=== PATIENT | female | born 1960 | race Caucasian/White ===

== ENCOUNTER 2018-08-05 18:25 | Inpatient (IN) | payer MEDICARE ==
[~2018-08-05] VITALS: Ht 157.5 cm; Wt 53.0 kg
[~2018-08-05 18:25] MED LIST: ACETAMINOPHEN325 M1 PO; ALDACTAZIDE 251 EAC1 PO; BLOOD PRESSURE PILL; COREG PO; FOLIC ACID1 MG PO; MAGOX 400400 MG PO; MULTIPLE VITAM1 EAC3 PO; NOHOMEMEDICATIONS; POTASSIUM20 PO; PROTONIX40 M2 PO; THERA-M CAPLET1 EAC1 PO; VITAMIN B-1100 M1 PO; [UNRECOGNIZED DRUG - CODE] PO
[2018-08-05 18:28] VITALS: BP 149/95
[2018-08-05] MEDS ORDERED: LISINOPRIL10 MG PO (18:32)
[2018-08-05] MEDS ORDERED: ALEVE220 MG PO (18:32)
--- NOTE | 2018-08-05 18:50 | NUR ---
PT BACK FROM RADIOLOGY VIA STRETCHER BY DENTAL LABORATORY TECHNICIAN APPRENTICE
--- NOTE | 2018-08-05 18:50 | NUR ---
REPORT GIVEN TO ALEJANDRO WAN WHO IS TO ASSUME PT CARE AT THIS TIME.
[2018-08-05 20:23] LABS: ABSOLUTE BASOPHILS 0.1 thou/uL (0.0-0.2); ABSOLUTE EOSINOPHILS 0.1 thou/uL (0.0-0.7); ABSOLUTE LYMPHOCYTES 1.2 thou/uL (0.8-5.3); ABSOLUTE MONOCYTES 0.6 thou/uL (0.0-1.2); ABSOLUTE NEUTROPHILS 10.1 thou/uL (1.6-8.1); BASOPHILS 0.7 %; EOSINOPHILS 0.5 %; HEMATOCRIT 36.8 % (37.0-47.0); HEMOGLOBIN 12.6 gm/dL (12.0-15.0); LYMPHOCYTES 10.1 %; MCH 31.7 pg (26.0-34.0); MCHC 34.2 g/dL (28.0-37.0); MCV 92.4 fL (80.0-100.0); MONOCYTES 4.9 %; MPV 7.3 fl. (7.2-11.1); NUCLEATED RBCS 0 /100WBC; PLATELET COUNT* 368 thou/uL (150-400); POLYS 83.8 %; RBC 3.98 mil/uL (4.20-5.00)
[2018-08-05 20:39] LABS: CALCIUM 9.6 mg/dL (8.5-10.1); CREATININE 0.8 mg/dL (0.6-1.3); POTASSIUM 3.8 mmol/L (3.5-5.1)
[2018-08-05 20:49] LABS: ALBUMIN 3.7 g/dL (3.4-5.0); TOTAL BILIRUBIN 0.2 mg/dL (<0.1-1.0); TOTAL PROTEIN 7.1 g/dL (6.4-8.2)
[2018-08-05 23:54] VITALS: BP 146/75
[2018-08-06] VITALS (7 sets, daily range): BP systolic 112–173; BP diastolic 72–94
--- NOTE | 2018-08-06 | NUR ---
PT ADMITTED A TELEMETRY PT. PT NOTED TOHAVE VOIDED IN BED. PT CLEANED AND MOVED TO HOSPITAL BED FOR COMFORT. RIGHT KNEE IMMOBLIZER INTACT. IV D5NS INFUSING VIA PUMP ORDERED AT 100CC/HR. Q 1 HR CIWAS STARTED ORDERED. PT OREINTED TO BED CONTROLS AND NURS ECALL SYSTEM. MONITOR APPLIED WITH ALARMS SET. WILL CONTINUE TO MONITOR
--- NOTE | 2018-08-06 06:02 | NUR ---
PT HAS RESTED QUIELTY THIS SHIFT. MONITORS INTACT WITH ALARMS SET. RIGHT KNEE IMMOBILIZER INTACT. CIWA HAS BEEN 0-2 THIS SHIFT. NO ACUTE DISTRESS NOTED. WILL CONTINUE TO MONITOR. NO ACUTE CHANGES DURING SHIFT
--- NOTE | 2018-08-06 07:02 | NUR ---
THIS NURSE RECEIVED REPORT FROM ALEJANDRO WAN. THIS NURSE TO ASSUME PT CARE AT THIS TIME.
--- NOTE | 2018-08-06 08:00 | NUR ---
ER ADMIT TO 2W ROOM 209. ASSESSMENT COMPLETE, DEFER TO COMPUTER CHARTING. PERFORMING ARTIST PLACED TRACKING SR. ALERT ORIENTED, CIWA SCORE 2. LEFT KNEE IMMOBILIZER IN PALCED TO RIGHT KNEE/LEG, REPORTING HAVING PAIN - WILL GIVE REPEAT PAIN MEDIATION TO ASSIST WITH PAIN CONTROL. DAUGHTERS AT BEDSIDE. BED ALARM ON FOR SAFETY. ORIENTED TO ROOM/CALL LIGHT AND PLAN OF CARE, VERBALIZED UNDERSTANDING. INCONTINENT OF LARGE AMT URINE, PAIN WHEN TURNING - EXTERNAL URINARY CATH PLACED. HOB ELEVATED, CALL LIGHT WITHIN REACH. DAUGHTERS AT BEDSIDE. WILL CONTINUE WITH PLAN OF CARE.
[2018-08-06] MEDS ORDERED: COZAAR 25 MG TA25 M2 PO (08:36)
[2018-08-06 09:20] LABS: CALCIUM 9.2 mg/dL (8.5-10.1); CREATININE 0.7 mg/dL (0.6-1.3); POTASSIUM 3.9 mmol/L (3.5-5.1)
[2018-08-06 09:36] LABS: CALCIUM 9.1 mg/dL (8.5-10.1); PHOSPHORUS* 4.3 mg/dL (2.5-4.9)
[2018-08-06 12:04] LABS: INR 0.9; PROTIME 9.6 Seconds (9.20-11.50)
--- NOTE | 2018-08-06 13:27 | NUR ---
INITIAL ASSESSMENT: Pt evaluated for d/c planning needs. Reviewed chart and spoke with nurse, pt and pt's 3 daughters. Pt lives alone in [facility] and history of alcohol abuse. Dtrs are concerned about pt's home situation. Pt's mother is her payee for her Social Security check and manages all of pt's finances. Pt's daughters are concerned about pt's ability to care for herself at home. Pt's daughters state that pt has urinated on herself and in her bed recently, and has not changed clothes or sheets. She also does not bathe according to dtrs. Pt continues to abuse alcohol and daughters want pt to go to SNF on d/c from hospital and then transition to assisted living or prison care. Pt was hospitalized at [facility] in January 2013 and went to [facility]. 2 daughters live in [place] and 1 daughter lives in [place]. Pt would prefer going to [facility] for SNF on d/c from hospital. Referral sent to [facility] and [facility] as second choice. When pt was at [facility], the manager social media there assisted with Medicaid application. Encouraged daughters to make Medicaid application again to assist with payment for co-pays at [facility]. Daughters are hopeful that pt will agree to going to assisted living after d/c from SNF. If pt does return home after [facility], she would benefit from home health. Dtrs are in agreement with plans. Talked about Medicaid homemaker services for pt. Will remain available to assist as needed.
--- NOTE | 2018-08-06 13:33 | NUR ---
SPOKE WITH CUAUHTEMOC WITH THE LOW EMISSION AUTOMOBILE DESIGNER FOR THE BRACE THAT NEEDS TO BE ORDERED FOR THIS PATIENT. SHE IS AWARE THAT WE NEED A HINGED BRACE FOR THIS PATIENT AND DR PIZARRO AND DR PANTOJA HAVE BEEN CALLED TO FOLLOW UP ON THE PARAMETERS WANTED FOR THIS DEVICE. CUAUHTEMOC STATED SHE WOULD BRING THE DEVICE TODAY.
--- NOTE | 2018-08-06 17:24 | NUR ---
CLAIM PROFESSIONAL TRACKING WITH NO CHANGE IN RHYTHM. CIWA SCORE 0, PATIENT DROWSY HAVING DIFFICULTY STAYING AWAKE - HELD SCHEULED ATIVAN AT THIS TIME. TOLERATING DIET. KNEE BRACED DELIVERED EARLIER BY EVAPORATOR REPAIRER AND IN PLACE TO RIGHT KNEE/LEG. NO COMPLAINTS OF PAIN TO NURSING AT THIS TIME, STATES ONLY HAVING DISCOMFORT WHEN MOVING. CALL LIGHT WTIHIN REACH. WILL CONTINUE WITH PLAN OF CARE.
[2018-08-07 00:01] VITALS: BP 144/73
[2018-08-07 04:00] VITALS: BP 138/77
[2018-08-07 04:54] LABS: HEMATOCRIT 33.5 % (37.0-47.0); HEMOGLOBIN 11.4 gm/dL (12.0-15.0); MCV 94.1 fL (80.0-100.0); MPV 7.7 fl. (7.2-11.1); RBC 3.56 mil/uL (4.20-5.00); RDW-CV 13.7 % (10.5-14.5); WBC 5.2 thou/uL (4.0-11.0)
[2018-08-07 05:12] LABS: ALBUMIN 3.1 g/dL (3.4-5.0); CALCIUM 8.7 mg/dL (8.5-10.1); CREATININE 0.6 mg/dL (0.6-1.3); POTASSIUM 3.8 mmol/L (3.5-5.1); TOTAL BILIRUBIN 0.3 mg/dL (<0.1-1.0)
[2018-08-07 07:45] VITALS: BP 164/69
--- NOTE | 2018-08-07 07:56 | NUR ---
ASSUMED PT CARE 193. ASSESSMENT COMPLETED CHARTED. ABLE TO MAKE NEEDS KNOWN. PURE WICK IN PLACE, NO C/O PAIN OR DISCOMFORT AT THIS TIME BUT HAS SOME SORENESS AT TIMES MOVING RIGHT LEG. BRACE IN PLACE. VSS. [id number] STARTED. WILL CONTINUE TO MONITOR.
[2018-08-07 12:31] VITALS: BP 162/85
[2018-08-07 15:38] VITALS: BP 139/74
--- NOTE | 2018-08-07 16:31 | NUR ---
ASSUMED CARE OF PATIENT AT 0730. ALERT AND ORIENTED X 4. VITAL SIGNS STABLE ON ROOM AIR. SINUS TACH ON MONITOR. AFEBRILE. PERRLA. IV PATENT AND SALINE LOCKED. PURE WICK FEMALE EXTERNAL CATHETER CHANGED THIS SHIFT AND IS IN PLACE AND DRAINING. PAIN BEING MANAGED WITH IV MEDICATION. DENIES NAUSEA AT THIS TIME. 3D HINGE BRACE IN PLACE TO RIGHT LEG. BED LOCKED AND IN LOWEST POSITION. FALL PRECAUTIONS IN PLACE AND BED ALARM ON. HOURLY ROUNDS MAINTAINED THROUGHOUT THE SHIFT. CALL LIGHT WITHIN REACH. NURSING WILL CONTINUE TO MONITOR.
[2018-08-07 20:00] VITALS: BP 138/63
[2018-08-08] VITALS: BP 130/63
[2018-08-08 04:00] VITALS: BP 155/83
[2018-08-08 05:05] LABS: HEMATOCRIT 33.3 % (37.0-47.0); HEMOGLOBIN 11.5 gm/dL (12.0-15.0); MCH 31.9 pg (26.0-34.0); MCHC 34.5 g/dL (28.0-37.0); MCV 92.6 fL (80.0-100.0); MPV 7.8 fl. (7.2-11.1); RBC 3.6 mil/uL (4.20-5.00); RDW-CV 13.3 % (10.5-14.5)
[2018-08-08 05:23] LABS: CALCIUM 8.9 mg/dL (8.5-10.1); CREATININE 0.6 mg/dL (0.6-1.3); MAGNESIUM 1.9 mg/dL (1.8-2.4); PHOSPHORUS* 3.7 mg/dL (2.5-4.9); POTASSIUM 3.8 mmol/L (3.5-5.1)
--- NOTE | 2018-08-08 05:55 | NUR ---
ASSUMED PT CARE AT 1930. ASSESSMENT COMPLETED CHARTED. NIGHT WENT ON, PT STARTED TO GO INTO WITHDRAW WITH CIWA OF 8-12 REGARDING ANXIETY, AGITATION, DISORIENTATION, AND HEADACHE. GAVE PRN ATIVAN PER PROTOCOL AND SCHEDULED. PT GETTING AGITATED THAT SHE CANT FALL ASLEEP YET, NO C/O PAIN OR DISCOMFORT AND THINKING SHE CAN FULLY WALK ON HER RIGHT LEG THAT SHE BROKE A COUPLE BONES ON. THINKING SHE IS AT HER HOUSE IN THE BASEMENT, ASKING TO BE MOVED TO ROOM, AND THEN WANTING TO SMOKE WHICH SHE PULLED OUT HER CIGARRETES FROM HER PURSE AND WAS GETTING READY TO SMOKE. THOSE ARE NOW WITH SECURITY. WILL CONTINUE TO MONITOR.
--- NOTE | 2018-08-08 07:20 | NUR ---
CHANGE OF SHIFT, BEDSIDE REPORT GIVEN PATIENT SEEN AT BEDSIDE, IN BED RESTING ASSUMED PATIENT CARE
[2018-08-08 08:00] VITALS: BP 172/95
--- NOTE | 2018-08-08 10:03 | NUR ---
LEATHER WORKER SPOKE TO LAKESHA WITH [facility] TO F/U ON A REFERRAL FAXED OVER THE WEEKEND. LAKESHA CONFIRMS THAT THE REFERRAL HAD BEEN RECIEVED, BUT NEEDED ADDITIONAL INFO (PT/OT NOTES, VITALS, AND PROGRESS NOTES). LAKESHA INFORMS THAT ADMISSIONS WILL REVIEW THE REFERRAL AND RETURN CALL. CM WILL REMAIN AVIALABLE TO ASSIST AND FOLLOW NEEDED.
[2018-08-08 11:28] VITALS: BP 159/92
[2018-08-08 11:38] LABS: AMP/METHAMP Negative (Negative); BARBITURATES Negative (Negative); BENZODIAZEPINES Negative (Negative); COCAINE Negative (Negative); METHADONE Negative (Negative); OPIATES Negative (Negative); PCP Negative (Negative); THC Negative (Negative); URINE BILIRUBIN NEGATIVE (Negative); URINE BLOOD NEGATIVE (Negative); URINE CLARITY CLEAR; URINE COLOR YELLOW; URINE GLUCOSE-RANDOM NEGATIVE (Negative); URINE KETONES NEGATIVE (Negative); URINE LEUKOCYTES NEGATIVE (Negative); URINE NITRITE NEGATIVE (Negative); URINE PROTEIN NEGATIVE (Negative); URINE UROBILINOGEN 0.2 E.U./dl (0.2-1.0)
--- NOTE | 2018-08-08 15:13 | NUR ---
PT. NOT SEEN DUE TO OT SCHEDULE CONFLICT.
[2018-08-08 15:33] VITALS: BP 146/72
[2018-08-08 21:00] VITALS: BP 108/65
[2018-08-09] VITALS: BP 120/73
[2018-08-09 04:00] VITALS: BP 109/63
[2018-08-09 05:09] LABS: HEMATOCRIT 35.3 % (37.0-47.0); MCH 31.7 pg (26.0-34.0); MCHC 33.9 g/dL (28.0-37.0); MCV 93.6 fL (80.0-100.0); MPV 7.5 fl. (7.2-11.1); RBC 3.77 mil/uL (4.20-5.00); RDW-CV 13.4 % (10.5-14.5); WBC 4.8 thou/uL (4.0-11.0)
[2018-08-09 06:23] LABS: ALBUMIN 3.2 g/dL (3.4-5.0); CALCIUM 9.2 mg/dL (8.5-10.1); CREATININE 0.7 mg/dL (0.6-1.3); MAGNESIUM 2.1 mg/dL (1.8-2.4); PHOSPHORUS* 4.8 mg/dL (2.5-4.9); TOTAL BILIRUBIN 0.3 mg/dL (<0.1-1.0); TOTAL PROTEIN 6.5 g/dL (6.4-8.2)
[2018-08-09 08:00] VITALS: BP 116/71
--- NOTE | 2018-08-09 08:00 | NUR ---
ASSUMED PT CARE AT 0700, A&O X2, VSS, SHUTTLE FIXER TRACING SINUS RHYTHM, RA. TOE TOUCH WEIGHT BEARING D/T RIGHT TIBIAL FX, BRACE IN PLACE, SITTER AT BEDSIDE, PT IS CALM AND COOPERATIVE AT THIS TIME. WILL CONT POC.
--- NOTE | 2018-08-09 08:07 | NUR ---
PATIENT HAS SLEPT MOST OF THE NIGHT. VSS ON RA. NO C/O PAIN. MEDICATIONS GIVEN ORDERED. PATIENT HAS BEEN A LITTLE IMPULSIVE AND CONFUSED AT TIMES, BUT ANSWERS APPROPRIATELY MOST OF THE TIME. SITTER AT BEDSIDE. PATIENT HAS NOT BEEN UP DURING THE SHIFT. BRACE TO RIGHT LEG IS IN PLACE. IV IN RIGHT FOREARM-SL. WILL CONTINUE WITH PLAN OF CARE AND NURSING TO MONITOR.
[2018-08-09 11:40] VITALS: BP 101/59
[2018-08-09 16:00] VITALS: BP 105/58
--- NOTE | 2018-08-09 16:21 | NUR ---
TUBE BENDER INFORMED BY DR PIZARRO THAT THE PATIENT 'MAY NOT REGAIN FULL COGNATIVE FUNCTION, AND WILL NEED MEMORY CARE AT D/C'. D/C LIP CUTTER ATTEMPTED TO CONTACT THE PATIENT'S DTR TO DISCUSS THIS FURTHER, AND LEFT A MESSAGE TO RETURN CALL TO CM. D/C LIP CUTTER ALSO ATTEMPTED TO CONTACT LAKESHA WITH ADMISSIONS AT [facility] TO INFORM THAT THE PATIENT MAY NEED A MEMORY CAR BED A D/C, AN D LEFT A MESSAGE TO RETURN CALL. ALY WITH [facility] HERE TO SEE THE PATIENT AND ASSIST WITH MEDICAID NIRMAL. CM WILL REMAIN AVAILABLE TO ASSIST AND FOLLOW NEEDED.
--- NOTE | 2018-08-09 18:39 | NUR ---
PT CONT TO HAVE CONFUSION, A&O X2-3, CONT ON BEDREST FOR RIGHT TIBIAL FX, BRACE IN PLACE. PT HAS BEEN CALM AND COOPERATIVE, SITTER REMAINS AT BEDSIDE. VSS, ASSEMBLER METAL BUILDING TRACING SINUS RHYTHM, HOURLY ROUNDING COMPLETED.
[2018-08-09 20:00] VITALS: BP 111/78
[2018-08-10] VITALS: BP 132/77
[2018-08-10 04:00] VITALS: BP 104/71
--- NOTE | 2018-08-10 05:15 | NUR ---
ASSUMED CARE OF PT AFTER REPORT AT 1930. PT A&OX4. FORGETFUL. CONFUSED AT TIMES. EASILY REDIRECTED. VSS. PHSYICAL ASSESSMENT COMPLETED AND CHARTED. PT ON RA. PT TRACING SR/ST ON TELE. PT COMPLAINED OF KNEE PAIN- PAIN MEDS GIVEN PER MAR. PT RESTED WELL ON BED. PT IS CALM & NOT IMPULSIVE- AUTOMATIC LOG CUT OFF SAWYER PULLED OUT AT 4AM. CALL LIGHT WITHIN REACH.
[2018-08-10 05:40] LABS: HEMATOCRIT 33.1 % (37.0-47.0); HEMOGLOBIN 11.4 gm/dL (12.0-15.0); MCHC 34.3 g/dL (28.0-37.0); MCV 93.4 fL (80.0-100.0); MPV 7.7 fl. (7.2-11.1); RBC 3.54 mil/uL (4.20-5.00); RDW-CV 13.8 % (10.5-14.5); WBC 5.4 thou/uL (4.0-11.0)
[2018-08-10 05:58] LABS: CALCIUM 8.8 mg/dL (8.5-10.1); CREATININE 0.8 mg/dL (0.6-1.3); MAGNESIUM 2.1 mg/dL (1.8-2.4); POTASSIUM 4.2 mmol/L (3.5-5.1); TOTAL BILIRUBIN 0.3 mg/dL (<0.1-1.0); TOTAL PROTEIN 6.2 g/dL (6.4-8.2)
[2018-08-10 08:00] VITALS: BP 128/56
--- NOTE | 2018-08-10 08:00 | NUR ---
ASSUME PT CARE AT 0700, PT LYING IN BED, CALL LIGHT IN REACH, FALL PRECAUTIONS IN PLACE. A&O X4 WITH SOME FORGETFULNESS, CALM AND COOPERATIVE. NO C/O PAIN AT THIS TIME, LEG BRACE IN PLACE. VSS, RA, FLIGHT TEST MECHANIC TRACING SINUS RHYTHM. SENIOR ENVIRONMENTAL SCIENTIST TO FIND PLACEMENT FOR PT D/T LIVING AT HOME ALONE, WILL CONT POC.
[2018-08-10 11:48] VITALS: BP 121/75
--- NOTE | 2018-08-10 11:48 | NUR ---
MICHAEL spoke with Pt's dtr, Luz, discussed need for memory care at [place], dtr in agreement. Per dtr, preference would be for Pt to go to [facility], most of Pt's family live there, second choice is [facility]. MICHAEL [place] [facility] their [place] unit, faxed referral. Plan skilled then transition to LTC.
[2018-08-10 16:12] VITALS: BP 127/79
--- NOTE | 2018-08-10 16:47 | NUR ---
PT UP WITH PT/OT THIS SHIFT, PT TO CONT USING BED ART SHE IS UNABLE TO UNDERSTAND CONCEPT OF TOE TOUCH WEIGHT BEARING AND UNABLE TO UNDERSTAND HOW TO USE WALKER. PT/OT TO CONTINUE WORKING WITH PT. PT TO DISCHARGE TO [facility] TOMORROW, PT HAS BEEN ACCEPTED BY FACILITY, PT AND FAMILY AWARE AND ON BOARD. A&O X4 WITH SOME CONFUSION AT TIMES, VSS, RA, HOURLY ROUNDING COMPLETED.
[2018-08-10 20:00] VITALS: BP 151/78
[2018-08-11 00:04] VITALS: BP 171/100
[2018-08-11 03:53] LABS: HEMATOCRIT 32.8 % (37.0-47.0); HEMOGLOBIN 11.4 gm/dL (12.0-15.0); MCH 32.3 pg (26.0-34.0); MCHC 34.8 g/dL (28.0-37.0); MCV 92.8 fL (80.0-100.0); RBC 3.53 mil/uL (4.20-5.00); RDW-CV 13.4 % (10.5-14.5); WBC 5.9 thou/uL (4.0-11.0)
[2018-08-11 04:00] VITALS: BP 145/86
[2018-08-11 04:20] LABS: ALBUMIN 3.2 g/dL (3.4-5.0); CALCIUM 9.2 mg/dL (8.5-10.1); CREATININE 0.6 mg/dL (0.6-1.3); POTASSIUM 4.3 mmol/L (3.5-5.1)
--- NOTE | 2018-08-11 04:35 | NUR ---
ASSUMED CARE OF PT AFTER REPORT AT 1930. PT A&OX4. FORGETFUL & CONFUSED AT TIMES. VSS. PHYSICAL ASSESSMENT COMPLETED AND CHARTED. PT ON RA. PT TRACING SR ON TELE. PT COMPLAINED OF RIGHT KNEE PAIN- PAIN MEDS GIVEN PER MAR. PT RESTED WELL ON BED. HOURLY ROUNDING OBSERVED. CALL LIGHT WITHIN REACH.
[2018-08-11 07:10] VITALS: BP 170/95
--- NOTE | 2018-08-11 08:00 | NUR ---
INITAL ASSESSMENT COMPLETED CHARTED. VSS. PT IS ALERT & OTIRENTED. TRACING SR ON MONITOR. PT C/O ACHING IN BILATERAL KNEES. HOURLY ROUNDING AND FALL PRECAUTIONS IN PLACE FOR PT SAFETY/ CLWR/
[2018-08-11] MEDS ORDERED: POTASSIUM20 PO (10:58)
[2018-08-11] MEDS ORDERED: MAGOX 400400 MG PO (10:59)
[2018-08-11] MEDS ORDERED: ATIVAN1 MG PO (11:02)
[2018-08-11] MEDS ORDERED: ENOXAPARIN40 MG/0.1 SUBQ (11:03)
[2018-08-11] MEDS ORDERED: MELATONIN5 M1 PO (11:04)
[2018-08-11] MEDS ORDERED: MILK OF MA400 MG/5 M PO (11:06)
[2018-08-11] MEDS ORDERED: ALUMINUM H600 MG/5 M PO (11:10)
[2018-08-11] MEDS ORDERED: PEPCID20 MG PO (11:12)
[2018-08-11] MEDS ORDERED: PHENERGAN12.5 M2 PO (11:13)
[2018-08-11] MEDS ORDERED: ALEVE220 MG PO (11:16)
[2018-08-11] MEDS ORDERED: TYLENOL325 MG RECTAL (11:16)
[2018-08-11] MEDS ORDERED: AMBIEN 5 MG TABL5 M1 PO (11:20)
[2018-08-11] MEDS ORDERED: DULCOLAX5 MG PO (11:22)
[2018-08-11] MEDS ORDERED: COZAAR 25 MG TA25 MG PO (11:24)
[2018-08-11] MEDS ORDERED: BENADRYL25 MG PO (11:25)
[2018-08-11] MEDS ORDERED: NORCO 5-325 TA1 EACH PO (11:27)
[2018-08-11 11:28] VITALS: BP 170/95
[2018-08-11 12:01] VITALS: BP 118/76
[2018-08-11] MEDS ORDERED: NICOTINE TRANSD21 M1 TRANSDERM (12:24)
--- NOTE | 2018-08-11 13:53 | NUR ---
LAND SURVEYING PARTY CHIEF INFORMED THAT THE PATIENT IS READY TO D/C TODAY TO [facility]. D/C INTEGRATED CAMPAIGN MANAGER CALLED AND LEFT A MESSAGE FOR [facility] WITH ADMISSIONS TO INFORM OF THE PATIENT'S D/C, AND FAXED THE PATIENT'S D/C ORDERS. D/C INTEGRATED CAMPAIGN MANAGER CALLED PATIENT'S DTR TO INFORM OF THE PATIENT'S D/C AND TIME OF TRANSPORT. PATIENT'S DTR IN AGREEMENT. D/C INTEGRATED CAMPAIGN MANAGER ARRANGED TRANSPORT WITH [facility] FOR 1430. D/C INTEGRATED CAMPAIGN MANAGER INFORMED THE RN IN-CHARGE OF THE PATIENT OF THE PATIENT'S TIME OF TRANSPORT AND WHERE TO CALL REPORT. RN IN AGREEMENT. CM WILL REMAIN AVIALABEL TO ASSIST AND FOLLOW NEEDED. [facility] [phone]
== END 2018-08-11 14:45 | DRG 543 ==
LOC: M.ERS 18:25 → M.TBA-ER 21:12 → M.2W 21:12
PROVIDERS: Internal Medicine; Nurse Practitioner Family; ADMIT Internal Medicine
DX: M80.061A Age-related osteoporosis with current pathological fracture, right lower leg, initial encounter for fracture (principal); E44.1 Mild protein-calorie malnutrition; J43.9 Emphysema, unspecified; I10 Essential (primary) hypertension; F17.210 Nicotine dependence, cigarettes, uncomplicated; F10.20 Alcohol dependence, uncomplicated; F04 Amnestic disorder due to known physiological condition; M85.861 Other specified disorders of bone density and structure, right lower leg; Z68.21 Body mass index [BMI] 21.0-21.9, adult; Z90.710 Acquired absence of both cervix and uterus; Z98.42 Cataract extraction status, left eye; Z98.41 Cataract extraction status, right eye; Z88.1 Allergy status to other antibiotic agents; Z88.8 Allergy status to other drugs, medicaments and biological substances; W01.0XXA Fall on same level from slipping, tripping and stumbling without subsequent striking against object, initial encounter; Y93.89 Activity, other specified; Y92.89 Other specified places as the place of occurrence of the external cause; Y99.8 Other external cause status

== ENCOUNTER 2020-05-31 23:20 | Inpatient (IN) | payer MEDICARE, MEDICAID ==
[~2020-05-31] VITALS: Ht 157.5 cm; Wt 61.6 kg
[~2020-05-31 23:20] MED LIST changes: +ALEVE220 MG PO; +ALUMINUM H600 MG/5 M PO; +AMBIEN 5 MG TABL5 M1 PO; +ATIVAN0.5 M1 PO; +BENADRYL25 MG PO; +COZAAR 25 MG TA25 M2 PO; +COZAAR 25 MG TA25 MG PO; +DULCOLAX5 MG PO; +ENOXAPARIN40 MG/0.1 SUBQ; +LISINOPRIL10 MG PO; +MELATONIN5 M1 PO; +MILK OF MA400 MG/5 M PO; +NICOTINE TRANSD21 M1 TRANSDERM; +NORCO 5-325 TA1 EACH PO; +PEPCID20 MG PO; +PHENERGAN12.5 M2 PO; +TYLENOL325 MG PO
[2020-06-01] MEDS ORDERED: LORATIDINE 10 M10 M1 PO (00:03)
[2020-06-01] MEDS ORDERED: NYSTATIN1 EA10 (00:04)
[2020-06-01] MEDS ORDERED: NYSTATIN15 G3 TOP (00:06)
[2020-06-01] MEDS ORDERED: REQUIP 0.25 M0.25 MG PO (00:07)
[2020-06-01] MEDS ORDERED: REQUIP 1 MG TABL1 M1 PO (00:07)
[2020-06-01] MEDS ORDERED: TRAMADOL 50 MG50 MG PO (00:08)
[2020-06-01 00:36] LABS: ABSOLUTE BASOPHILS 0.1 thou/uL (0.0-0.2); ABSOLUTE EOSINOPHILS 0.6 thou/uL (0.0-0.7); ABSOLUTE LYMPHOCYTES 1.5 thou/uL (0.8-5.3); ABSOLUTE MONOCYTES 0.7 thou/uL (0.0-1.2); ABSOLUTE NEUTROPHILS 7.1 thou/uL (1.6-8.1); BASOPHILS 0.9 %; EOSINOPHILS 5.7 %; MCH 27.1 pg (26.0-34.0); MCHC 33.4 g/dL (28.0-37.0); MCV 81.3 fL (80.0-100.0); MONOCYTES 7.1 %; NUCLEATED RBCS 0 /100WBC; PLATELET COUNT* 418 thou/uL (150-400); POLYS 71.3 %; RBC 4.06 mil/uL (4.20-5.00); RDW-CV 13.8 % (10.5-14.5); WBC 9.9 thou/uL (4.0-11.0)
[2020-06-01 00:44] LABS: CALCIUM 9.2 mg/dL (8.5-10.1); CREATININE 0.7 mg/dL (0.6-1.3)
[2020-06-01 00:51] LABS: INR 0.9
[2020-06-01 00:55] LABS: ALBUMIN 3.4 g/dL (3.4-5.0); MAGNESIUM 1.9 mg/dL (1.8-2.4); TOTAL BILIRUBIN 0.2 mg/dL (<0.1-1.0); TOTAL PROTEIN 6.8 g/dL (6.4-8.2)
[2020-06-01 08:39] VITALS: BP 180/92
[2020-06-01 09:31] VITALS: BP 180/92
[2020-06-01 09:40] VITALS: BP 155/93
[2020-06-01 12:00] VITALS: BP 126/66
[2020-06-01 14:55] LABS: URINE BILIRUBIN NEGATIVE (Negative); URINE COLOR YELLOW; URINE GLUCOSE-RANDOM NEGATIVE (Negative); URINE KETONES NEGATIVE (Negative); URINE PROTEIN NEGATIVE (Negative); URINE SPECIFIC GRAVITY 1.015 (1.005-1.030)
[2020-06-01 14:56] LABS: URINE BLOOD NEGATIVE (Negative); URINE CLARITY CLEAR; URINE LEUKOCYTES-REFLEX NEGATIVE (Negative); URINE NITRITE-REFLEX NEGATIVE (Negative); URINE UROBILINOGEN 0.2 E.U./dl (0.2-1.0)
[2020-06-01 15:26] LABS: URINE BILIRUBIN NEGATIVE (Negative); URINE BLOOD NEGATIVE (Negative); URINE CLARITY CLEAR; URINE COLOR YELLOW; URINE GLUCOSE-RANDOM NEGATIVE (Negative); URINE KETONES 1+ (Negative); URINE LEUKOCYTES-REFLEX NEGATIVE (Negative); URINE NITRITE-REFLEX NEGATIVE (Negative); URINE PROTEIN NEGATIVE (Negative); URINE UROBILINOGEN 0.2 E.U./dl (0.2-1.0)
[2020-06-01 17:00] VITALS: BP 169/87
[2020-06-01 21:00] VITALS: BP 157/56; BP 157/86
[2020-06-02] VITALS (7 sets, daily range): BP systolic 130–151; BP diastolic 67–85
[2020-06-02 04:54] LABS: ALBUMIN 3.2 g/dL (3.4-5.0); ALKALINE PHOSPHATASE 101 U/L (46-116); ANION GAP 12 mmol/L (7-16); BUN 13 mg/dL (7-18); CALCIUM 9.5 mg/dL (8.5-10.1); CHLORIDE 101 mmol/L (98-107); CHOLESTEROL 169 mg/dL (<200); CO2 23 mmol/L (21-32); CREATININE 0.6 mg/dL (0.6-1.3); GLUCOSE 101 mg/dL (70-99); HDL CHOLESTEROL 35 mg/dL (>40); LDL CHOLESTEROL 113 mg/dL (<100); POTASSIUM 3.8 mmol/L (3.5-5.1); SGOT 14 U/L (15-37); SGPT 11 U/L (30-65); SODIUM 136 mmol/L (136-145); TC:HDL 4.8 Ratio (Not establshd); TOTAL BILIRUBIN 0.3 mg/dL (<0.1-1.0); TOTAL PROTEIN 6.9 g/dL (6.4-8.2); TRIGLYCERIDE 109 mg/dL (<150); VLDL 22 mg/dL (<40)
[2020-06-02 04:59] LABS: SERUM ASSESSMENT Clear
--- NOTE | 2020-06-02 09:14 | CON ---
[address] [address] CONSULTATION Name: ADAMJOSEBING Malinda Room: [address] IN M.R.#: [id number] Admission: 06/01/20 Attend Phys: Lolita Pittman MD Discharge: Date of : 62 Report #: [id number] THIS REPORT FOR: cc: FAM - No family physician/PCP FAM - No family physician/PCP ~ Ashleigh Paulino DO NEUROLOGY CONSULTATION HISTORY OF PRESENT ILLNESS: The patient is a 60-year-old female who came from the group home. The patient told me that she was transferring to her wheelchair when she missed the wheelchair and fell to the ground. I read the information from the Emergency Room and the patient stated that the group home sent her here because she was weaker today on transferring from her wheelchair to the bathroom. The patient tells me that she did not make it into the wheelchair, but she fell to the floor. The patient lives in a group home. Apparently, she has had a stroke in the past and her right arm is weak. Today, she tells me that she feels weak all over. She normally walks with a walker. The patient tells me that she cannot live on her own when she decided to move her daughters had a sale and sold all of her things. She is now in a group home. PAST MEDICAL HISTORY: Hypertension, anxiety, insomnia, restless legs. PAST SURGICAL HISTORY: Hysterectomy, tonsillectomy, bilateral cataract surgery, bilateral carpal tunnel release. ALLERGIES: LISINOPRIL AND CIPROFLOXACIN. VITAL SIGNS: Temperature 36.4, pulse rate 84, respiratory rate 16, blood pressure 126/66, bedside pulse oximetry 95% on room air. LABORATORY DATA: Hematology: White blood cell count 9.9; hemoglobin 11; hematocrit 33; MCV 81.3; platelet count 418,000. INR 0.9. Urinalysis negative. Chemistry: Sodium 137, potassium 4, chloride 100, carbon dioxide 24, BUN 16, creatinine 0.7, GFR 86, glucose 109, calcium 9.2, magnesium 1.9. Liver functions normal. IMAGING STUDIES: CT scan of the head demonstrates moderate cerebral atrophy with no acute intracranial process. NEUROLOGIC EXAM: Cranial nerves 2-12 are grossly intact. The patient has some mild dysarthria. Motor exam demonstrates symmetrical strength in all [address] [place] [address] CONSULTATION Name: BING DAWN Room: [address]#: [id number] Admission: 06/01/20 Attend Phys: Lolita Pittman MD Discharge: Date of : 62 Report #: [id number] extremities with the exception of the right upper extremity. The patient has 4/5 strength in the limbs. Reflexes demonstrate hyporeflexia throughout. She has bilateral extensor plantar responses. There is no significant evidence of dysmetria. Gait was not tested because the patient's safety. IMPRESSION: I realized this patient has been diagnosed with a stroke in the past, but she has bilateral neurological signs, which I would not expect to see with the left hemispheric stroke and I have ordered an MRI of the head with and without contrast for Wednesday. My only other recommendation would be physical therapy, occupational therapy, and speech therapy, which have already been ordered for the patient. I reviewed her medications and see that lorazepam has been reduced 2.5 mg b.i.d. I agree with the reduction in this medication as it can cause dysarthria and general weakness. The patient also has restless leg syndrome and is on ropinirole 0.5 mg at 1 p.m. and 1 mg at bedtime. I thank you for your kind referral of the patient. We will continue to follow her with you. <ELECTRONICALLY SIGNED> By: Ashleigh Paulino DO 06/02/20 0914 1414 1957Ashleigh Paulino DO /nt
[2020-06-03 03:05] LABS: GLYCOHEMOGLOBIN (HGB A1C) 5.7 % (4.8-5.6)
[2020-06-03 04:24] VITALS: BP 117/74
[2020-06-03 07:47] VITALS: BP 134/80
--- NOTE | 2020-06-03 10:37 | EKG ---
[place] [address] ELECTROCARDIOGRAM REPORT Name: BING DAWN Room: [address] ADM IN .R.#: [id number] Admission: 06/01/20 Attend Phys: Lolita Pittman, Discharge: Date of : 62 Date of Service: 05/31/20 2333 Report #: [id number] THIS REPORT FOR: //name// [facility] ED Test Date: 2020-05-31 Test Time: 23:33:11 Pat Name: BING DAWN Department: Room: [facility] Gender: F Tool Designer Apprentice: KAYA : 1960 Requested By: Brittani Mae Order Number: [id number] MD: Dani Green Measurements Intervals [place] Rate: 90 P: 50 NC: 151 QRS: -9 QRSD: 99 T: 1 QT: 365 QTc: 447 Interpretive Statements Sinus rhythm Borderline T abnormalities, inferior leads Compared to ECG 02/01/2013 10:24:11 T-wave abnormality now present Sinus tachycardia no longer present Electronically Signed On 06-03-2020 10:37:23 CDT by Dani Green [email or web address] <ELECTRONICALLY SIGNED> By: Dani Green MD, FACC 06/03/20 1037 2333 2333 Dani Green MD, FAC /EPI
--- NOTE | 2020-06-03 10:39 | EKG ---
[place] [address] ELECTROCARDIOGRAM REPORT Name: BING DAWN Room: [address] ADM IN .R.#: [id number] Admission: 06/01/20 Attend Phys: Lolita Pittman, Discharge: Date of : 62 Date of Service: 06/01/20 0310 Report #: [id number] THIS REPORT FOR: //name// [facility] ED Test Date: 2020-06-01 Test Time: 03:10:48 Pat Name: BING DAWN Department: Room: [facility] [place] Gender: F Parts Sales Counterperson: [facility] : 1960 Requested By: Brittani Mae Order Number: [id number] MD: Dani Green Measurements Intervals [place] Rate: 93 P: 16 ID: [id number] QRS: -15 QRSD: 95 T: -1 QT: 360 QTc: 448 Interpretive Statements Sinus rhythm Borderline left axis deviation Compared to ECG 05/31/2020 23:33:11 no change Electronically Signed On 06-03-2020 10:39:11 CDT by Dani Green [email or web address] <ELECTRONICALLY SIGNED> By: Dani Green MD, FAC 06/03/20 1039 Dani Green MD, [facility] /EPI
[2020-06-03 11:09] VITALS: BP 137/69
[2020-06-03 16:00] VITALS: BP 119/60
[2020-06-03 19:55] VITALS: BP 135/81
[2020-06-04] VITALS (8 sets, daily range): BP systolic 107–133; BP diastolic 48–72
[2020-06-04 03:48] LABS: HEMATOCRIT 35.6 % (37.0-47.0); HEMOGLOBIN 11.8 gm/dL (12.0-15.0); MCH 27.2 pg (26.0-34.0); MCHC 33.2 g/dL (28.0-37.0); MPV 7.2 fl. (7.2-11.1); RBC 4.34 mil/uL (4.20-5.00); RDW-CV 14.1 % (10.5-14.5); WBC 11.4 thou/uL (4.0-11.0)
[2020-06-04 03:57] LABS: ALBUMIN 3.3 g/dL (3.4-5.0); CREATININE 0.8 mg/dL (0.6-1.3); MAGNESIUM 2.3 mg/dL (1.8-2.4); POTASSIUM 4.1 mmol/L (3.5-5.1); TOTAL BILIRUBIN 0.3 mg/dL (<0.1-1.0); TOTAL PROTEIN 7.3 g/dL (6.4-8.2)
[2020-06-05 04:11] VITALS: BP 115/58
[2020-06-05 08:00] VITALS: BP 117/73
[2020-06-05 12:11] VITALS: BP 106/70
[2020-06-05 15:45] VITALS: BP 115/65
[2020-06-05 19:50] VITALS: BP 99/61
[2020-06-06] VITALS: BP 114/60
[2020-06-06 03:37] LABS: HEMATOCRIT 36.4 % (37.0-47.0); HEMOGLOBIN 12.2 gm/dL (12.0-15.0); MCH 27.5 pg (26.0-34.0); MCHC 33.4 g/dL (28.0-37.0); MCV 82.2 fL (80.0-100.0); MPV 7.2 fl. (7.2-11.1); RBC 4.43 mil/uL (4.20-5.00); RDW-CV 14.3 % (10.5-14.5); WBC 10.4 thou/uL (4.0-11.0)
[2020-06-06 04:00] VITALS: BP 97/68
[2020-06-06 04:44] LABS: ALBUMIN 3.2 g/dL (3.4-5.0); CREATININE 0.8 mg/dL (0.6-1.3); MAGNESIUM 2.2 mg/dL (1.8-2.4); POTASSIUM 3.8 mmol/L (3.5-5.1); TOTAL BILIRUBIN 0.3 mg/dL (<0.1-1.0); TOTAL PROTEIN 7.2 g/dL (6.4-8.2)
[2020-06-06 08:00] VITALS: BP 118/66
[2020-06-06 12:16] VITALS: BP 135/78
[2020-06-06] MEDS ORDERED: PEPCID20 MG PO (12:19)
[2020-06-06] MEDS ORDERED: FOLIC ACID1 MG PO (12:20)
[2020-06-06] MEDS ORDERED: VITAMIN B-1100 M1 PO (12:21)
== END 2020-06-06 14:07 | DRG 71 ==
LOC: M.ERS 23:20 → M.TBA-ER 06-01 05:06 → M.2W 06-01 05:06
PROVIDERS: Emergency Medicine; Family Medicine; Internal Medicine; ADMIT Internal Medicine; ATTEND Internal Medicine
DX: G93.41 Metabolic encephalopathy (principal); E44.0 Moderate protein-calorie malnutrition; I69.351 Hemiplegia and hemiparesis following cerebral infarction affecting right dominant side; F41.9 Anxiety disorder, unspecified; G47.00 Insomnia, unspecified; G25.81 Restless legs syndrome; F17.200 Nicotine dependence, unspecified, uncomplicated; D64.9 Anemia, unspecified; K44.9 Diaphragmatic hernia without obstruction or gangrene; I10 Essential (primary) hypertension; J43.9 Emphysema, unspecified; G31.9 Degenerative disease of nervous system, unspecified; Z20.822 Contact with and (suspected) exposure to COVID-19; Z98.41 Cataract extraction status, right eye; Z98.42 Cataract extraction status, left eye; Z90.710 Acquired absence of both cervix and uterus; Z79.899 Other long term (current) drug therapy; Z88.1 Allergy status to other antibiotic agents; Z88.8 Allergy status to other drugs, medicaments and biological substances; Z68.24 Body mass index [BMI] 24.0-24.9, adult